=== PATIENT | male | born 1990 | race Two or more races ===

== ENCOUNTER 2024-01-30 19:32 | Emergency (ER) | payer OTHER ==
[~2024-01-30] VITALS: Ht 175.3 cm; Wt 123.0 kg
[2024-01-30 20:35] LABS: Basophils # (auto) 0.1 10 ^3/uL (0-0.2); Basophils % (auto) 0.8 % (0.0-2.0); Eosinophils # (auto) 0.2 10 ^3/uL (0-0.8); Eosinophils % (auto) 1.1 % (0.0-7.0); Hematocrit 41.8 % (41.0-53.0); Lymphocytes # (auto) 2.9 10 ^3/uL (0.4-5.4); Lymphocytes % (auto) 19.6 % (10.0-50.0); Mean Corpuscular Hemoglobin 29.9 pg (28.0-32.0); Mean Corpuscular Hgb Conc. 33.4 g/dL (32.0-36.0); Mean Corpuscular Volume 89.5 fL (80.0-100.0); Monocytes # (auto) 1.5 10 ^3/uL (0-1.3); Monocytes % (auto) 10.2 % (0.0-12.0); Neutrophils # (auto) 10.1 10 ^3/uL (1.6-8.6); Neutrophils % (auto) 68.3 % (37.0-80.0); Red Blood Cells 4.67 10^6/uL (4.5-5.90); White Blood Cell 14.8 10^3/uL (4.4-10.8)
[2024-01-30 20:51] LABS: Partial Thromboplastin Time 25.7 SEC (24.5-34.5); Prothrombin Time 10.6 sec (9.3-11.8)
[2024-01-30 20:54] LABS: Alanine Aminotransferase 28 U/L (7-40); Albumin 4.6 g/dL (3.2-4.8); Alkaline Phosphatase 97 U/L (46-116); Anion Gap 7 (5-15); Aspartate Aminotransferase 19 U/L (13-40); BUN/Creatinine Ratio 9.5 (10.0-20.0); Bilirubin, Total 0.3 mg/dL (0.2-1.0); Blood Urea Nitrogen 12 mg/dL (9-23); Carbon Dioxide 26 mmol/L (20-30); Chloride 107 mmol/L (98-107); Glucose 121 mg/dL (74-106); Potassium 3.9 mmol/L (3.5-5.1); Sodium 140 mmol/L (136-145); Total Protein 7.8 g/dL (5.7-8.2)
[2024-01-30] MEDS: cefTRIAXone 2GM/50ML D5W 50 ML IV ONE (22:44)
[2024-01-30] MEDS: HYDROcodone-ACET 10/325MG TAB PO ONE (22:44)
[2024-01-30] MEDS ORDERED: DOXY100C4 PO (23:16)
[2024-01-30] MEDS ORDERED: ACET-1304 PO (23:16)
[2024-01-30] MEDS ORDERED: IOHEXOL 350 MG/ML 100ML IJ ONE (23:33)
[2024-01-30 23:40] VITALS: BP 131/82; PULSE 103; RESP 19; O2SAT 97
[2024-01-30] MEDS: KETOROLAC TROMETH 30 MG/ML 1ML VIAL IM ONE (23:58)
== END 2024-01-30 23:59 | disposition home or self-care (01) ==
LOC: ER 19:32
DX: L03.116 Cellulitis of left lower limb (principal); Z79.899 Other long term (current) drug therapy
CPT/HCPCS: 36415; 71045; 71275; 80053; 83605; 83880; 84484; 85025; 85379; 85610; 85730; 87040; 93005; 93970; 96365; 96372; 99285; J0696; J1885; Q9967